=== PATIENT | male | born 2000 | race Two or more races ===

== ENCOUNTER 2022-05-15 21:10 | Emergency (ER) | payer OTHER, BC ==
[~2022-05-15] VITALS: Ht 172.7 cm; Wt 90.9 kg
[2022-05-15 21:31] VITALS: BP 157/84
[2022-05-16] MEDS ORDERED: CEPH-585 PO
[2022-05-16] MEDS ORDERED: cephalexin 250mg capsule PO ONE (00:10)
--- NOTE | 2022-05-16 00:24 | NUR ---
po med given dressing applied to suture repair site.
== END 2022-05-16 00:25 | disposition home or self-care (01) ==
LOC: ER 21:12
DX: S61.217A Laceration without foreign body of left little finger without damage to nail, initial encounter (principal); Z79.2 Long term (current) use of antibiotics; W26.0XXA Contact with knife, initial encounter; Y93.89 Activity, other specified; Y92.89 Other specified places as the place of occurrence of the external cause; Y99.8 Other external cause status
CPT/HCPCS: 12002; 99283; A6222; 12001